=== PATIENT | male | born 1970 | race Hispanic/Latino ===

== ENCOUNTER 2020-10-02 07:27 | Day surgery (SDC) | payer BC ==
[2020-10-01 15:41] LABS: Absolute Lymphocytes (CBC) 1.8 K/uL (0.7-4.9); Basophils % 0.9 % (0-1.3); Hematocrit 42.6 % (39.6-49.0); Lymphocytes % 29.6 % (15.3-44.8); MPV 8.3 fL (7.6-11.3); RBC Red Blood Cell Count 5.04 M/uL (4.33-5.43)
--- NOTE | 2020-10-01 15:42 | RAD REPORT ---
EXAM DESCRIPTION: RAD - Chest Pa And Lat (2 Views) - 10/01/2020 3:15 pm CLINICAL HISTORY: preoppending umbilical hernia surgery COMPARISON: July 2009 TECHNIQUE: Frontal and lateral views of the chest were obtained. FINDINGS: The lungs are clear. Interstitial pattern matches comparison. Heart size is normal and ce ntral vasculature is within normal limits. No pleural effusion or pneumothorax seen. No acute bony finding noted. No aortic abnormality. IMPRESSION: No acute cardiopulmonary process. No significant change from comparison study.
[2020-10-01 16:02] LABS: Potassium 3.7 mmol/L (3.5-5.1)
[2020-10-02] MEDS ORDERED: CEFAZOLIN/SWI 1gm 1 GM/10 ML SYR ONE (08:17)
[2020-10-02] MEDS ORDERED: Ringers Lactate 1,000 ML IV ONE (08:17)
[2020-10-02] MEDS ORDERED: BUPIVACAINE 0.5% PF 10 ML VIAL ONE (09:35)
[2020-10-02] MEDS ORDERED: FENTANYL CITR 100 MCG/2 ML ONE (10:19)
[2020-10-02] MEDS ORDERED: propofoL 200 MG/20 ML VIAL IV ONE (10:19)
[2020-10-02] MEDS ORDERED: dexAMETHasone 10 MG/ML VIAL ONE (10:20)
[2020-10-02] MEDS ORDERED: ONDANSETRON 4 MG/2 ML VIAL ONE (10:20)
[2020-10-02] MEDS ORDERED: KETOROLAC 30 MG/ML INJ ONE (10:20)
[2020-10-02] MEDS ORDERED: MIDAZOLAM HCL 2 MG/2 ML INJ ONE (10:20)
[2020-10-02] MEDS ORDERED: ROCURONIUM 50 MG/5 ML VIAL IV ONE (10:20)
[2020-10-02] MEDS ORDERED: LIDOCAINE 2% MPF 5 ML VIAL ONE (10:20)
--- NOTE | 2020-10-02 10:25 | P.BOP ---
Preoperative diagnosis: incarcerated umbilical hernia Postoperative diagnosis: same Primary procedure: Open repair of incarcerated umbilical hernia Specimen: hernia sac Findings: incarcerated umbilical hernia Anesthesia: General Complications: None Transferred to: Recovery Room Condition: Good
[2020-10-02 11:31] VITALS: O2SAT 95
[2020-10-02] MEDS ORDERED: CODEINE 30MG/APAP 300MG TAB ONE (12:14)
--- NOTE | 2020-10-02 12:31 | DS ---
Diagnosis: Incarcerated umbilical hernia. Procedure Performed: Open repair of incarcerated umbilical hernia. Disposition: Home. Activity: As tolerated. No heavy lifting. Plan: Follow up in my office in 1 week. Call for appointment at [phone]. Keep area dry until he s ees us once again in our office. SHANITA/DAV Voice ID: [id number] Report ID: [id number]
--- NOTE | 2020-10-02 12:31 | OP ---
Date of Procedure: 10/02/2020 Surgeon: Spencer Mcdowell MD Preoperative Diagnosis: Incarcerated umbilical hernia. Postoperative Diagnosis: Incarcerated umbilical hernia. Procedure: Open repair of incarcerated umbilical hernia. Finding: Incarcerated omentum. Anesthesia: General plus local. Indications: This is the case of a 50-year-old patient, who comes to us with above diagnosis. Izzy chris coyle explained the benefits, alternatives, and risks of repair of incarcerated umbilical hernia, which include, but not limited to infection, bleeding, damage to adjacent structures, anesthesia complicati on, recurrence, NE and even . He also understands this may not relieve any symptoms. He might need more than one surgical intervention. He understands to take his medications including his antib iotics. This area was infected, not too long ago. Also has an ulceration over that area. He was ad vised the importance of also losing weight and no heavy lifting. Procedure In Detail: The patient was brought to the operating room, placed in supine position. Anes thesia was done without complication. Abdominal area was prepped and draped in sterile fashion. Loc al anesthesia was applied followed by sharp incision of the skin in the infraumbilical area after a t cristobal-out was called. Incision was carried down to fascia. We noticed a hernia sac opened, noticed in carcerated omentum. Some of them have to be ligated since it did reduce, but we did that between John ly clamps and 0 chromic suture. Once we inspected the rest of the omentum, we made sure there was no bleeding. We proceeded to reduce it back into the abdominal cavity with the hernia sac was removed. Fascial edges were clean. Then, we proceeded to close the area with #1 Prolene [id number] mul tiple times. The area was irrigated. Subcutaneous tissue was closed with 3-0 chromic and the skin w ith mila. Sponge count and instrument counts correct. The patient tolerated the procedure well. The patient was sent to recovery in stable condition. SHANITA/DAV Voice ID: [id number] Report ID: [id number]
[2020-10-02 13:05] VITALS: TEMP 97
[2020-10-02 13:19] VITALS: BP 136/78
--- NOTE | 2020-10-03 07:41 | EKG ---
Test Date: 2020-10-01 Test Time: 13:58:39 Accounting Consultant: MARCK MEASUREMENT RESULTS: Intervals: Rate: 63 OK: 212 QRSD: 108 QT: 414 QTc: 423 [place]: P: 55 OK: 212 QRS: 68 T: 74 INTERPRETIVE STATEMENTS: Sinus rhythm with 1st degree AV block Otherwise normal ECG No previous ECG available for comparison Electronically Signed On 10-03-20 07:35:19 CDT by Charles Rangel
== END 2020-10-02 13:10 | disposition home or self-care (01) ==
LOC: OR 07:27
PROVIDERS: ATTEND Surgery
PROC: 0WQF0ZZ Repair Abdominal Wall, Open Approach (ICD-10-PCS; principal; 2020-10-02 09:00)
DX: K42.0 Umbilical hernia with obstruction, without gangrene (principal); Z20.822 Contact with and (suspected) exposure to COVID-19
CPT/HCPCS: 49587; 93005; 85025; 80048; 36415; 88302; 71046; U0003; J2704; J2250; J3010; J1100; J0690; J7120; J2405

== ENCOUNTER 2023-02-15 18:53 | Emergency (ER) | payer BC ==
--- OUTSIDE RECORDS SUMMARY | 2023-02-15 18:57 | XMS REPORT | Continuity of Care Document ---
:1970 Author Organization [facility] t Address [address] [place] [address]. [address] [place] [address] Care Team Providers Name Role Phone Rg Mcclelland Attending Clinician Unavailable BRANDEN LAGOS Attending Clinician Unavailable Payers Payer Name Policy Type Policy Number Effective Date Expiration Date [place] [facility] [employer] 6 [id number] 2021 Common Sp[facility] t Blue Shield of 00:00:00 - [facility] HEALTH [id number] 2018 [employer] 00:00:00 Problems Condition Condition Condition Status Onset Resolution Last Treating Co mments Source Name Details Category Date Date Treatment Clinician Date [id number] Seasonal Problem Active Comm on allergies Spirit - [facility] [id number] Erectile Problem Active Comm on dysfunctio Spirit n, - [facility] un[facility] erectile [facility] dysfunctio [facility] [id number] HTN, goal Problem Active Comm on below Spirit 140/90 - [facility] [id number] Calculus Problem Active Commo n of Spirit gallbladde - [facility] r without [facility] cholecysti [facility] obstructio n [id number] Metabolic Problem Active Com mon syndrome [facility] - [facility] [id number] Body mass Problem Active Com mon index Spirit (BMI) of - [facility] 40.0-44.9 [facility] in [facility] [id number] Morbid Problem Active Commo n 9104 (severe) Spirit obesity - [facility] due to [facility] excess [facility] [id number] Fatty Problem Active Common liver Spirit - [facility] 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 lic fatty Spi rit ic fatty liver - [facility] liver disease [facility] [id number] Mixed Problem Active Common hyperlipid [facility] Allergies, Adverse Reactions, Alerts Allergy Allergy Status Severity Reaction(s) Onset Inactive Treating Comm ents Source Name Type Date Date Clinician NO KNOWN Drug Active Univers ALLERGIE Class ity of S [facility] Social History Social Habit Start Date Stop Date Quantity Comments Source History of Tobacco Use Co mmon [facility] Sex Assigned At Com mon [facility] Smoking Status Start Date Stop Date Source Never Smoker [facility] Medications Ordered Filled Start Stop Current Ordering Indication Dosage Frequency Signature Comments Components Source Medication Medication Date Date Medication? Clinician (SIG) Name Name Metoprolol Metoprolol No 1{capsu QD Metoprolol Succinate Succinate le} Succinate 50 MG 50 MG 50 MG Montelukast Montelukast No 1{table QD Montelukas Sodium 10 Sodium 10 t} t Sodium MG MG 10 MG Lisinopril- Lisinopril- No 1{table BID Lisinopril hydroCHLORO hydroCHLORO t} -hydroCHLO thiazide thiazide ROthiazide 20-12.5 MG 20-12.5 MG 20-12.5 MG Metoprolol Metoprolol No Metoprolol Succinate Succinate Succinate ER 50 MG ER 50 MG ER 50 MG Tadalafil Tadalafil No 1{table Tadalafil 20 MG 20 MG t} 20 MG Metoprolol Metoprolol No Metoprolol Succinate Succinate Succinate ER 50 MG ER 50 MG ER 50 MG Metoprolol Metoprolol No 1{capsu QD Metoprolol Succinate Succinate le} Succinate 50 MG 50 MG 50 MG Montelukast Montelukast No 1{table QD Montelukas Sodium 10 Sodium 10 t} t Sodium MG MG 10 MG Tadalafil Tadalafil No 1{table Tadalafil 20 MG 20 MG t} 20 MG Lisinopril- Lisinopril- No 1{table BID Lisinopril hydroCHLORO hydroCHLORO t} -hydroCHLO thiazide thiazide ROthiazide 20-12.5 MG 20-12.5 MG 20-12.5 MG Montelukast Montelukast No 1{table QD Montelukas Sodium 10 Sodium 10 t} t Sodium MG MG 10 MG Tadalafil Tadalafil No 1{table Tadalafil 20 MG 20 MG t} 20 MG Metoprolol Metoprolol No 1{capsu QD Metoprolol Succinate Succinate le} Succinate 50 MG 50 MG 50 MG Lisinopril- Lisinopril- No 1{table BID Lisinopril hydroCHLORO hydroCHLORO t} -hydroCHLO thiazide thiazide ROthiazide 20-12.5 MG 20-12.5 MG 20-12.5 MG Metoprolol Metoprolol No Metoprolol Succinate Succinate Succinate ER 50 MG ER 50 MG ER 50 MG Metoprolol Metoprolol No 1{capsu QD Metoprolol Succinate Succinate le} Succinate 50 MG 50 MG 50 MG Tadalafil Tadalafil No 1{table Tadalafil 20 MG 20 MG t} 20 MG Metoprolol Metoprolol Yes Rg 1 capsule Common Succinate Succinate [facility] Spir it [facility] Yes Rg 1 tablet Common Sodium Sodium [facility] Lisinopril- Lisinopril- Yes Rg 1 tablet Common Hydrochloro Hydrochloro [facility]le[facility] Spirit thiazide thiazide - [facility] No 1{table QD Montelukas Sodium 10 Sodium 10 t} t Sodium MG MG 10 MG Lisinopril- Lisinopril- No 1{table BID Lisinopril hydroCHLORO hydroCHLORO t} -hydroCHLO thiazide thiazide ROthiazide 20-12.5 MG 20-12.5 MG 20-12.5 MG Metoprolol Metoprolol No Metoprolol Succinate Succinate Succinate ER 50 MG ER 50 MG ER 50 MG Immunizations Ordered Immunization Filled Immunization Date Status Commen ts Source Name Name Boostrix (Tdap) Boostrix (Tdap) 2021-11-20 Completed Comm on Spirit 08:50:00 [facility] Boostrix (Tdap) Boostrix (Tdap) 2021-11-20 Completed Comm on Spirit 08:50:00 [facility] Afluria single dose Afluria single dose 2019-03-20 Completed Common [facility] 15:59:00 [facility] Afluria single dose Afluria single dose 2019-03-20 Completed Common [facility] 15:59:00 - [facility] Afluria single dose Afluria single dose 2019-03-20 Completed Common [facility] 15:59:00 [facility] Afluria single dose Afluria single dose 2019-03-20 Completed Common [facility] 15:59:00 - [facility] Vital Signs Vital Name Observation Time Observation Value Comments Source height 2022-02-18 08:30:00 65 [in_i] Common [facility] weight 2022-02-18 08:30:00 233.4 [lb_av] [facility] temperature 2022-02-18 08:30:00 98.3 [degF] [facility] 2022-02-18 08:30:00 38.84 kg/m2 [facility] oximetry 2022-02-18 08:30:00 98 % [facility] respiratory rate 2022-02-18 08:30:00 18 /min Comm on [facility] blood pressure 2022-02-18 08:30:00 138 mm[Hg] Common [facility] - systolic [facility] blood pressure 2022-02-18 08:30:00 78 mm[Hg] [facility] [place] [facility] height 2021-11-20 08:20:00 65 [in_i] Common [facility] weight 2021-11-20 08:20:00 230.2 [lb_av] [facility] temperature 2021-11-20 08:20:00 98.5 [degF] [facility] bmi 2021-11-20 08:20:00 38.3 kg/m2 [facility] oximetry 2021-11-20 08:20:00 99 % [facility] respiratory rate 2021-11-20 08:20:00 18 /min Comm on [facility] blood pressure 2021-11-20 08:20:00 135 mm[Hg] Common [facility] - systolic [facility] blood pressure 2021-11-20 08:20:00 76 mm[Hg] Common [facility] - diastolic [facility] height 2021-08-21 09:30:00 65 [in_i] Common [facility] weight 2021-08-21 09:30:00 235.1 [lb_av] Common [facility] temperature 2021-08-21 09:30:00 98.3 [degF] Common [facility] bmi 2021-08-21 09:30:00 39.12 kg/m2 [facility] oximetry 2021-08-21 09:30:00 97 % [facility] respiratory rate 2021-08-21 09:30:00 17 /min Comm on [facility] blood pressure 2021-08-21 09:30:00 138 mm[Hg] Common [facility] - systolic [facility] blood pressure 2021-08-21 09:30:00 82 mm[Hg] Common [facility] - diastolic [facility] height 2021-05-29 08:00:00 65 [in_i] Common [facility] weight 2021-05-29 08:00:00 237 [lb_av] [facility] temperature 2021-05-29 08:00:00 98 [degF] [facility] bmi 2021-05-29 08:00:00 39.43 kg/m2 [facility] blood pressure 2021-05-29 08:00:00 133 mm[Hg] Common [facility] - systolic [facility] blood pressure 2021-05-29 08:00:00 76 mm[Hg] Common [facility] - diastolic [facility] Procedures This patient has no known procedures. Encounters Start End Encounter Admission Attending Care Care Encounter Source Date/Time Date/Time Type Type Clinicians Facility Department ID 2023-02-15 [facility] [id number] Common 08:38:00 [facility] [id number] [facility] 2023-02-12 Outpatient Mcclelland, [facility] Common 11:07:00 Rg [id number] [facility] 2022-09-02 Outpatient Mcclelland, [facility] Common 09:17:01 Rg [id number] [facility] 2021-08-21 Outpatient Mcclelland, [facility] Common 09:24:02 Rg [facility] 2021-07-16 Outpatient Mcclelland, [facility] Common 13:32:34 Rg [facility] 2021-07-16 Outpatient Mcclelland, [facility] Common 12:46:57 Rg [facility] 2021-07-16 Outpatient Mcclelland, [facility] Common 12:46:43 Rg [id number] [facility] 2021-07-16 Outpatient Mcclelland, [facility] Common 12:45:52 Rg [id number] [facility] 2021-07-16 Outpatient Mcclelland, [facility] Common 11:58:34 Rg [id number] [facility] 2021-07-16 Outpatient Mcclelland, [facility] Common 11:29:25 Rg [id number] [facility] 2021-07-16 Outpatient Mcclelland, [facility] Common 11:29:02 Rg [id number] [facility] 2021-07-16 Outpatient Mcclelland, [facility] Common 11:18:10 Rg [id number] [facility] 2021-07-16 Outpatient Mcclelland, [facility] Common 11:17:08 Rg [id number] [facility] 2021-07-16 Outpatient Mcclelland, [facility] [id number] Common 11:03:32 Rg [id number] [facility] 2022-02-18 2022-02-18 OFFICE STLMLC ST[facility]C [id number] Co mmon 00:00:00 00:00:00 VISIT EST Spir it PT LEVEL 3 - [facility] 2021-11-20 2021-11-20 PREV VISIT STLMLC STLMLC [id number] Common 00:00:00 00:00:00 EST AGE Spirit 40-64 - [facility] 2021-08-21 2021-08-21 OFFICE STLMLC STLMLC [id number] Co mmon 00:00:00 00:00:00 VISIT Spirit ESTAB PT - CHI LEVEL 4 [facility] 2021-05-29 2021-05-29 OFFICE STLMLC STLMLC [id number] Co mmon 00:00:00 00:00:00 VISIT Spirit ESTAB PT - [facility]I LEVEL 4 [facility] 2021-02-04 2021-02-04 Outpatient STLMLC STL[facility] [id number] Common 00:00:00 00:00:00 [facility] 2021-02-03 2021-02-03 Outpatient Randy LAGOS [facility] [id number] Univers 12:00:00 12:00:00 BRANDEN romero [facility] 2020-09-18 2020-09-18 Outpatient STLMLC STL[facility] [id number] Common 00:00:00 00:00:00 [facility] 2020-04-15 2020-04-15 Outpatient STLMLC STL[facility]C [id number] Common 00:00:00 00:00:00 [facility] 2020-04-05 2020-04-05 Outpatient STLMLC STL[facility]C [id number] Common 00:00:00 00:00:00 [facility] 2019-12-20 2019-12-20 [facility] [id number] Common 16:30:00 16:30:[address] [facility] 2019-07-17 2019-07-17 [facility] [id number] Common 16:00:00 16:00:[address] [facility] 2019-06-12 2019-06-12 Outpatient Anaya Gilman [id number] Common 16:45:00 16:45:[email or web address] [facility] Results This patient has no known results.
[2023-02-15 20:42] VITALS: BP 127/77; TEMP 98; O2SAT 100
--- NOTE | 2023-02-16 19:51 | EDPHYS ---
Physician Documentation [facility] Name: Noe Potter Age: 53 yrs Sex: Male : 1970 Arrival Date: 02/15/2023 Time: 18:53 Bed IW7 Private MD: ED Physician Michael Cooper HPI: 02/15 19:21 This 53 yrs old Male presents to ER via Wheelchair with complaints of Knee kb Pain - right knee with weakness. 19:21 The patient presents with pain. The complaints affect the right knee. The patient has kb not experienced similar symptoms in the past. The patient has not recently seen a physician. Historical: - Allergies: 19:09 No Known Allergies; bp - Home Meds: 19:09 lisinopril Oral [Active]; amlodipine oral [Active]; Metoprolol Tartrate Oral [Active]; bp - PMHx: 19:09 Hypertensive disorder; bp - Immunization history:: Adult Immunizations up to date. - Social history:: Smoking status: Patient denies any tobacco usage or history of. ROS: 19:13 Constitutional: Negative for fever, chills, and weight loss. kb 19:13 MS/extremity: Positive for pain, of the right knee. 19:13 All other systems are negative. Exam: 19:13 Constitutional: This is a well developed, well nourished patient who is awake, alert, kb and in no acute distress. Head/Face: Normocephalic, atraumatic. ENT: Moist Mucous membranes Cardiovascular: Regular rate and rhythm with a normal S1 and S2. No gallops, murmurs, or rubs. No pulse deficits. Respiratory: Respirations even and unlabored. No increased work of breathing. Talking in full sentences Abdomen/GI: Soft, non-tender. No distention Skin: Warm, dry with normal turgor. Normal color. Neuro: Awake and alert, GCS 15, oriented to person, place, time, and situation. Moves all extremities. Normal gait. 19:13 Musculoskeletal/extremity: Extremities: grossly normal except: noted in the right knee: pain, ROM: intact in all extremities, Circulation is intact in all extremities. Sensation intact. Weight bearing: able to fully bear weight. Vital Signs: 19:14 BP 127 / 77; Pulse 64; Resp 16; Temp 98; Pulse Ox 100% ; Weight 104.78 kg; Height 5 ft. bp 5 in. ; 19:14 Body Mass Index 38.44 (104.78 kg, 165.1 cm) bp MDM: 19:04 Patient medically screened. kb 19:13 Differential diagnosis: dislocation, closed fracture, contusion, tendonitis, sprain. kb Data reviewed: vital signs, nurses notes. Test considered but Not performed: X-ray: x-ray considered, but unlikely to be of help due to lack of injury and ongoing pain for 4 weeks. Counseling: I had a detailed discussion with the patient and/or guardian regarding the historical points, exam findings, and any diagnostic results supporting the discharge/admit diagnosis, the need for outpatient follow up, a orthopedic surgeon, to return to the emergency department if symptoms worsen or persist or if there are any questions or concerns that arise at home. Administered Medications: No medications were administered Disposition Summary: 02/15/23 19:18 Discharge Ordered Location: Home kb Condition: Stable kb Diagnosis - Pain in right knee kb Followup: kb - With: Emergency Department - When: As needed - Reason: Worsening of condition Followup: kb - With: Private Physician - When: 2 - 3 days - Reason: Recheck today's complaints, Continuance of care, Re-evaluation by your physician Discharge Instructions: - Musculoskeletal Pain kb - Knee Sprain, Adult, [id number] kb - Acute Knee Pain, Adult, [id number] kb - Discharge Summary Sheet bp Forms: - Medication Reconciliation Form kb - Thank You Letter kb - Antibiotic Education kb - Prescription Opioid Use kb - Patient Portal Instructions kb - Leadership Thank You Letter kb - Work release form bp Signatures: Kaity Packer FNP-Sylvester GEE-Contreras Bonner, RN RN bp Corrections: (The following items were deleted from the chart) 19:18 19:13 Crutches ordered. kb kb
--- NOTE | 2023-02-16 19:51 | ER ---
Nurse's Notes [facility] Name: Noe Potter Age: 53 yrs Sex: Male : 1970 Arrival Date: 02/15/2023 Time: 18:53 Bed IW7 Private MD: Diagnosis: Pain in right knee Presentation: 02/15 19:14 Chief complaint: Patient states: R KNEE PAIN INCREASING x4 WK. Coronavirus screen: At bp this time, the client does not indicate any symptoms associated with coronavirus-19. Ebola Screen: No symptoms or risks identified at this time. Initial Sepsis Screen: Does the patient meet any 2 criteria? No. Patient's initial sepsis screen is negative. Does the patient have a suspected source of infection? No. Patient's initial sepsis screen is negative. Risk Assessment: Do you want to hurt yourself or someone else? Patient reports no desire to harm self or others. Onset of symptoms is unknown. 19:14 Method Of Arrival: Wheelchair bp 19:14 Acuity: ALEKSANDRA 5 bp Triage Assessment: 19:14 General: Appears in no apparent distress. comfortable, Behavior is calm, cooperative, bp appropriate for age. Pain: Complains of pain in right knee. Historical: - Allergies: 19:09 No Known Allergies; bp - Home Meds: 19:09 lisinopril Oral [Active]; amlodipine oral [Active]; Metoprolol Tartrate Oral [Active]; bp - PMHx: 19:09 Hypertensive disorder; bp - Immunization history:: Adult Immunizations up to date. - Social history:: Smoking status: Patient denies any tobacco usage or history of. Screenin:49 [facility] ED Fall Risk Assessment (Adult) History of falling in the last 3 months, bp including since admission No falls in past 3 months (0 pts). Abuse screen: Denies threats or abuse. Denies injuries from another. Nutritional screening: No deficits noted. Tuberculosis screening: No symptoms or risk factors identified. Vital Signs: 19:14 BP 127 / 77; Pulse 64; Resp 16; Temp 98; Pulse Ox 100% ; Weight 104.78 kg; Height 5 ft. bp 5 in. ; 19:14 Body Mass Index 38.44 (104.78 kg, 165.1 cm) bp ED Course: 18:56 Patient arrived in ED. im 19:01 [facility] kb 19:02 Michael Cooper is Attending Physician. kb 19:14 Arm band placed on. bp 19:16 Triage completed. bp 19:49 Patient has correct armband on for positive identification. bp 19:49 No provider procedures requiring assistance completed. Patient did not have IV access bp during this emergency room visit. Administered Medications: No medications were administered Outcome: 19:18 Discharge ordered by MD. kb 19:49 Discharged to bp 19:49 Condition: stable 19:49 Discharge instructions given to patient, Instructed on discharge instructions, follow up and referral plans. Demonstrated understanding of instructions, follow-up care. 19:50 Patient left the ED. bp Signatures: Kaity Packer FNP-C FNP-Contreras Bonner, RN RN bp Laura Bellamy im
== END 2023-02-15 19:50 | disposition home or self-care (01) ==
LOC: ER 18:53
DX: M25.561 Pain in right knee (principal)
CPT/HCPCS: 99282